=== PATIENT | male | born 1970 | race Caucasian/White ===

== ENCOUNTER 2020-02-28 06:22 | Outpatient (REF) | payer BC, SELFPAY ==
[2020-02-28 07:19] LABS: MANUAL DIFF FLAG NO
[2020-02-28 07:25] LABS: Basophils Percent Auto 0.5 % (0-2); Eosinophils Absolute Auto 0.1 X10*3/uL (0.0-0.4); Eosinophils Percent Auto 1.6 % (0-4); Hematocrit 44.5 % (42-52); Hemoglobin 14.6 g/dl (14.0-18.0); Imm Gran Abs Auto 0.01 X10*3/uL (0.00-0.03); Imm Gran Pct Auto 0.2 % (0.0-0.4); Lymphocytes Absolute Auto 1.9 X10*3/uL (1.2-4.9); Lymphocytes Percent Auto 33.6 % (20-40); Mean Corpuscular HGB Conc 32.8 g/dl (31.0-36.0); Mean Corpuscular Hemoglobin 30.2 pg (27.0-33.0); Mean Corpuscular Volume 92.1 fL (80-98); Mean Platelet Volume 9.5 fL (9.4-12.4); Monocytes Absolute Auto 0.6 X10*3/uL (0.1-1.2); Monocytes Percent Auto 10.2 % (2-11); Neutrophils Absolute Auto 3.1 X10*3/uL (2.0-8.3); Neutrophils Percent Auto 53.9 % (45-73); Platelet Count 332 X10*3/uL (160-400); Red Blood Count 4.83 X10*6/uL (4.60-5.80); Red Cell Distribution Width 12.1 % (11.0-16.0); White Blood Count 5.7 X10*3/uL (4.8-10.8)
[2020-02-28 07:47] LABS: Anion Gap 13 (12-20); Blood Urea Nitrogen 24 mg/dL (9-16); Calcium 8.7 mg/dL (8.4-10.2); Carbon Dioxide 30 mmol/L (22-29); Chloride 103 mmol/L (96-108); Cholesterol 202 mg/dL; Estimated Glomerular Filt Rate > 60; Glucose Fasting 84 mg/dL (60-99); HDL Cholesterol 58 mg/dL; LDL Cholesterol Calculated 133 mg/dl; Potassium 4.6 mmol/l (3.3-5.1); Sodium 141 mmol/L (135-145); Triglycerides 56 mg/dL
[2020-02-28 08:08] LABS: Prostate Specific Antigen Scr 0.52 ng/mL (<0.05-4.0)
== END 2020-02-28 06:23 | disposition home or self-care (01) ==
LOC: HO.LAB 06:22
PROVIDERS: PCP Nurse Practitioner Family; Visit Provider Nurse Practitioner Family
DX: Z00.00 Encounter for general adult medical examination without abnormal findings (principal)
CPT/HCPCS: 36415; 80048; 80061; 84153; 85025

== ENCOUNTER 2020-04-22 08:31 | Outpatient (REF) | payer BC, SELFPAY ==
[2020-04-22 08:51] LABS: COVID-19 Test Negative (Negative); IDNOW Serial# 55D5AD1C
== END 2020-04-22 08:32 | disposition home or self-care (01) ==
LOC: HO.LAB 08:31
PROVIDERS: Visit Provider Internal Medicine
DX: Z20.822 Contact with and (suspected) exposure to COVID-19 (principal)
CPT/HCPCS: 36415; 87635; C9803

== ENCOUNTER 2021-02-08 06:16 | Outpatient (REF) | payer BC, SELFPAY ==
[2021-02-08 08:06] LABS: Cholesterol 198 mg/dL; HDL Cholesterol 26 mg/dL; LDL Cholesterol Calculated 149 mg/dl; Triglycerides 116 mg/dL
[2021-02-08 08:27] LABS: Prostate Specific Antigen Scr 0.27 ng/mL (<0.05-4.0)
== END 2021-02-08 06:17 | disposition home or self-care (01) ==
LOC: HO.LAB 06:16
PROVIDERS: PCP Internal Medicine; Visit Provider Internal Medicine
DX: Z12.5 Encounter for screening for malignant neoplasm of prostate (principal); E11.9 Type 2 diabetes mellitus without complications; R35.1 Nocturia
CPT/HCPCS: 36415; 80061; 84153

== ENCOUNTER 2021-02-26 09:26 | Emergency (ER) | payer BC, SELFPAY ==
[2021-02-26 09:30] VITALS: BP 131/80; PULSE 66; RESP 17; TEMP 36.3; O2SAT 99; BMI 25.0
[2021-02-26] MEDS: Lidocaine HCl 2 % MPF 5 ML VIAL SUBCUT (09:42)
[2021-02-26] MEDS: Diphth,Pertus(ACell),Tet Adult 0.5 ML SYRINGE IM (10:10)
--- NOTE | 2021-02-26 10:11 | ED.WOUNDLAC ---
HPI - Wound/Laceration General Chief Complaint: Wound/Laceration Stated Complaint: Ear lac Time Seen by Provider: 02/26/21 09:39 Source: patient Mode of arrival: ambulatory Limitations: no limitations History of Present Illness HPI narrative: 50-year-old male presenting to the ED with a laceration to his right earlobe after a large fish hook caught on while he was trying to pack his stuff to move out of his house prior to arrival. He reports that he is not up-to-date on his tetanus. Denies any other injuries complaints or concerns at this time. 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) Location: other (Right ear) Place: home Patient tetanus UTD: No Context: accidental Associated symptoms: none Treatments prior to arrival: bandage Related Data Previous Rx's Medication Instructions Recorded sertraline 100 mg tablet (Zoloft) 100 mg PO DAILY #90 tab 01/15/21 atorvastatin 10 mg tablet (Lipitor) 10 mg PO DAILY 90 Days #90 tab 01/20/21 Allergies Allergy/AdvReac Type Severity Reaction Status Date / Time No Known Allergies Allergy Verified 09/09/20 14:35 Review of Systems Review of Systems: Constitutional : No Fever, No Chills, Cardiovascular : No Chest Pain, No SOB Respiratory : No Dyspnea Gastrointestinal : No abdominal pain Musculoskeletal : No Joint Swelling Skin : positive skin laceration, No Foreign bodies, No rash, No surrounding erythema Neuro : No Weakness, No Numbness/tingling Psych : No SI/HI/thoughts of self injury Yes all other systems are reviewed and are negative [facility] Past Medical History Attestation statement: The following information was validated with the patient. 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 Blood pressure normal Heart rate normal. Respiration rate normal. Temperature normal. Oxygen saturation normal. Appearance: Alert. Oriented X3. No acute distress. Head: Normal external exam. Normocephalic. Atraumatic. Eyes: PERRLA. EOMI. Conjunctiva and sclera normal. Eyelids normal. ENT: To the right ear lobe patient has a 2 cm flap irregular laceration. No foreign bodies or active bleeding noted. Pharynx normal. Uvula midline. Moist mucous membranes. Neck: Normal inspection. Neck supple. FROM. CVS: Normal heart rate and rhythm. Respiratory: No respiratory distress. Painless inspiration. Skin: Skin warm and dry. Normal skin color. Normal skin turgor. No rashes/lesions noted. Extremities: Extremities exhibit normal range of motion. Extremities nontender. Neuro: Oriented X 3. No motor deficit. No sensory deficit. Reflexes normal. Normal steady gait. No focal neuro deficits noted. Vascular: + radial pulses/+ 2 distal pedal pulses/+2 dorsalis pedis b/l. Normal cap refill. No cyanosis noted to upper extremity nails and lower extremity toes nails. Course Course Course Narrative: 50-year-old male presenting to the ED with a laceration to his right earlobe after a large fish hook caught on while he was trying to pack his stuff to move out of his house prior to arrival. He reports that he is not up-to-date on his tetanus. Denies any other injuries complaints or concerns at this time. Patient now status post laceration repair with [address] Patient tolerated procedure well. No complications. Tetanus updated at this time. Will DC home with instructions return in 5-7 days for suture removal and to return if any new or worsening symptoms and to follow up with primary care provider. Patient understands agrees with this plan. [facility] - Wound/Laceration Medical Records Attestation: I reviewed the patient's medical records. Procedures Laceration Laceration 1: Site: other ( Ear lobe) Side (If applicable): right Size (cm): 2 Description: flap and irregular Depth: involves muscle layer and [id number] Local Anesthetic: lidocaine 2% Amount of anesthesia used (mL): 3 Pre-repair: wound explored, irrigated extensively, deep structures intact and wound margins revised Skin layer closed with: nylon Size (cm): 6-0 Number of sutures: 7 Technique: simple, interrupted Discharge Plan Discharge Clinical Impression: Ear lobe laceration Patient Disposition: Home, Self-Care Instructions: Laceration (ED) Prescriptions: No Action sertraline [Zoloft] 100 mg tablet 100 mg PO DAILY Qty: 90 RF: 8 atorvastatin [Lipitor] 10 mg tablet 10 mg PO DAILY 90 Days Qty: 90 RF: 3 Referrals: Bernie Hannah PA [Emergency Midlevel Provider] - 1 week ( Return in 5-7 days for suture removal or sooner if any new or worsening symptoms.) Print Language: Uruguayan
== END 2021-02-26 10:25 | disposition home or self-care (01) ==
PROVIDERS: Emergency Provider Emergency Medicine; PCP Internal Medicine
DX: S01.311A Laceration without foreign body of right ear, initial encounter (principal); W26.8XXA Contact with other sharp object(s), not elsewhere classified, initial encounter; Y93.89 Activity, other specified; Y92.009 Unspecified place in unspecified non-institutional (private) residence as the place of occurrence of the external cause; Y99.9 Unspecified external cause status
CPT/HCPCS: 12051; 90471; 90715; 99283; 99284

== ENCOUNTER 2022-07-06 08:58 | Outpatient (REF) | payer BC, SELFPAY ==
[2022-07-06 09:20] LABS: MANUAL DIFF FLAG NO
[2022-07-06 09:30] LABS: Basophils Percent Auto 0.6 % (0-2); Eosinophils Absolute Auto 0.1 X10*3/uL (0.0-0.4); Eosinophils Percent Auto 0.8 % (0-4); Hemoglobin 14.6 g/dl (14.0-18.0); Imm Gran Abs Auto 0.03 X10*3/uL (0.00-0.03); Imm Gran Pct Auto 0.4 % (0.0-0.4); Lymphocytes Absolute Auto 1.7 X10*3/uL (1.2-4.9); Lymphocytes Percent Auto 23.5 % (20-40); Mean Corpuscular Hemoglobin 30.7 pg (27.0-33.0); Mean Corpuscular Volume 90.5 fL (80.0-98.0); Mean Platelet Volume 9.2 fL (9.4-12.4); Monocytes Absolute Auto 0.5 X10*3/uL (0.1-1.2); Monocytes Percent Auto 6.8 % (2-11); Neutrophils Absolute Auto 4.8 x10*3/uL (2.0-8.3); Neutrophils Percent Auto 67.9 % (45-73); Platelet Count 294 X10*3/uL (160-400); Red Blood Count 4.75 X10*6/uL (4.60-5.80); Red Cell Distribution Width 12.4 % (11.0-16.0); White Blood Count 7.1 X10*3/uL (4.8-10.8)
[2022-07-06 10:09] LABS: Alanine Aminotransferase 35 U/L (0-40); Albumin Level 4.3 g/dL (3.5-5.0); Alkaline Phosphatase 46 U/L (39-117); Anion Gap 12 (12-20); Aspartate Amino Transferase 36 U/L (5-37); Bilirubin Total 0.8 mg/dL (0.0-1.0); Blood Urea Nitrogen 19 mg/dL (9-16); Calcium 9.1 mg/dL (8.4-10.2); Carbon Dioxide 28 mmol/L (22-29); Chloride 104 mmol/L (96-108); Cholesterol 233 mg/dL; Estimated Glomerular Filt Rate > 60; Glucose Fasting 84 mg/dL (60-99); HDL Cholesterol 54 mg/dL; LDL Cholesterol Calculated 165 mg/dl; Potassium 4.3 mmol/L (3.3-5.1); Sodium 140 mmol/L (135-145); Total Protein 6.5 g/dL (6.5-8.0); Triglycerides 74 mg/dL
[2022-07-06 10:29] LABS: Prostate Specific Antigen Scr 0.45 ng/mL (<0.05-4.0)
[2022-07-12 14:44] LABS: Testosterone, Free 73.8 pg/mL (35.0-155.0); Testosterone, Total 572 ng/dL (250-1100)
== END 2022-07-06 08:59 | disposition home or self-care (01) ==
LOC: HO.LAB 08:58
PROVIDERS: PCP Internal Medicine; Visit Provider Internal Medicine
DX: Z00.00 Encounter for general adult medical examination without abnormal findings (principal); E03.9 Hypothyroidism, unspecified; R68.82 Decreased libido; E78.5 Hyperlipidemia, unspecified; N28.9 Disorder of kidney and ureter, unspecified; D64.9 Anemia, unspecified; Z12.5 Encounter for screening for malignant neoplasm of prostate
CPT/HCPCS: 36415; 80053; 80061; 84153; 84402; 84403; 84443; 85025

== ENCOUNTER 2023-01-30 10:40 | Outpatient (AMB) | payer BC, SELFPAY ==
--- NOTE | 2023-01-30 12:14 | MHC.OFFWIV ---
Intake Vital Signs 01/30/23 12:20 Height 5 ft 5 in Weight 135 lb 6 oz BMI 22.5 BP 100/68 Blood Pressure Location Rt brachial Position Sitting Pulse 62 Pulse Source Pulse Oximeter Temp 98.8 F Temp Source Oral Pulse Oximetry (%) 96 Oxygen Delivery Method Room Air Intake Visit Reasons: EST/left rib injury [phone] Intake Note: Pt is here today c/o Left side of med back pain due to son landed on his back x3days ago Patient Tobacco Use Status: Never used Tobacco Allergies No Known Allergies Allergy (Verified 01/30/23 12:50) Medication List - Last Reconciled 01/30/23 by Eduardo Epperson MD atorvastatin 10 mg PO DAILY sertraline 100 mg PO DAILY Do you need a note to return to daycare/school/sports/work: Yes HPI EST/left rib injury [phone] HPI Details 52-year-old male presents to the office for a sick visit. Patient reports that his child weighing 60 lb unexpectedly jumped on his back. He has sharp pain in the upper spine area. Taking deep breaths or sneezing triggers sharp pain. This event happened 2 days ago. No fevers or chills. Able to function and do activities of daily living. 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 No spinal or paraspinal tenderness. Breath sounds are well heard bilaterally. Chest palpation & inspection: normal inspection of the chest Results AMB Urinalysis, Automated UA Leukoctes 0 Patel/uL Last Edit by Shayna Bazzi CMA on 01/30/23 12:30 UA Nitrite Negative Last Edit by Shayna Bazzi, YOLANDA on 01/30/23 12:30 UA Urobilinogen 0.2 mg/dL Last Edit by Shayna Bazzi, YOLANDA on 01/30/23 12:30 UA Protein 0 mg/dL Last Edit by Shayna Bazzi, YOLANDA on 01/30/23 12:30 UA pH 7.0 Last Edit by Shayna Bazzi, YOLANDA on 01/30/23 12:30 UA Blood 0 Andrew/uL Last Edit by Shayna Bazzi, YOLANDA on 01/30/23 12:30 UA Specific [place] 1.015 Last Edit by Shayna Bazzi, YOLANDA on 01/30/23 12:30 UA Ketone Negative Last Edit by Shayna Bazzi, YOLANDA on 01/30/23 12:30 UA Bilirubin 0 mg/dL Last Edit by Shayna Bazzi, YOLANDA on 01/30/23 12:30 UA Glucose 0 mg/dL Last Edit by Shayna Bazzi CMA on 01/30/23 12:30 Results Reviewed Results Reviewed: Laboratory Last Values Urine pH (Auto) 7.0 01/30/23 12: Specific [place] (Auto) 1.015 01/30/23 12:26 Urine Protein (Auto) 0 mg/dL 01/30/23 12:26 Glucose (UA)(Auto) 0 mg/dL 01/30/23 12:26 Urine Ketones (Auto) Negative 01/30/23 12:26 Urine Blood (Auto) 0 Andrew/uL 01/30/23 12:26 Urine Nitrite (Auto) Negative 01/30/23 12:26 Urine Bilirubin (Auto) 0 mg/dL 01/30/23 12:26 Urine Urobilinogen (Auto) 0.2 mg/dL 01/30/23 12:26 Leukocyte Esterase (Auto) 0 Patel/uL 01/30/23 12:26 Assessment & Plan Assessment & Plan (1) Contusion, chest wall: Code(s): S20.219A - Contusion of unspecified front wall of thorax, initial encounter Plan: X-ray images personally viewed by me. Meloxicam and cyclobenzaprine called in. Orders: Orders AMB Urinalysis Automated Today Z13.9 - Encounter for screening, unspecified XR ribs LT min 3V w CXR1V Today S20.219A - Contusion of unspecified front wall of thorax, initial encounter Coding Level of Care Code Est Pt Level 4 (48808) Diagnoses Contusion, chest wall S20.219A
[2023-01-30 12:20] VITALS: BP 100/68; PULSE 62; TEMP 37.1; O2SAT 96; BMI 22.5
== END 2023-01-30 13:33 | disposition home or self-care (01) ==
PROVIDERS: PCP Internal Medicine; Visit Provider Internal Medicine
DX: S20.219A Contusion of unspecified front wall of thorax, initial encounter (principal); Z13.9 Encounter for screening, unspecified
CPT/HCPCS: 81003; 99214

== ENCOUNTER 2023-01-30 12:47 | Outpatient (REF) | payer BC, SELFPAY ==
--- NOTE | ~2023-01-30 | XR_ITS ---
EXAMINATION: XR RIBS, LEFT CLINICAL INFORMATION: Contusion of front chest wall with question of fracture COMPARISON: None available. TECHNIQUE: Single view chest with 3 additional views left RIBS FINDINGS: Lungs are clear. No consolidation, pneumothorax, or pleural effusion. The cardiomediastinal silhouette and pulmonary vasculature are normal. Osseous structures are unremarkable. Ribs are intact. No fractures are identified. XR/XR ribs LT min 3V w CXR1V IMPRESSION: Unremarkable examination.
== END 2023-01-30 12:48 | disposition home or self-care (01) ==
LOC: HO.HMGCX 12:47
PROVIDERS: Visit Provider Internal Medicine
DX: S20.212A Contusion of left front wall of thorax, initial encounter (principal)
CPT/HCPCS: 71101

== ENCOUNTER 2023-04-11 09:16 | Outpatient (AMB) | payer BC, SELFPAY ==
[2023-04-11 09:27] VITALS: BP 108/60; PULSE 103; O2SAT 98; BMI 22.3
--- NOTE | 2023-04-11 09:27 | MHC.PC.OV ---
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: Not Required per policy Accompanied by: Self / Same As Patient Allergies No Known Allergies Allergy (Verified 04/11/23 09:28) Medication List - Last Reconciled 04/11/23 by Dionte Graham MD atorvastatin 10 mg PO DAILY sertraline 100 mg PO DAILY Tobacco use date assessed: 04/11/23 Dental Screening Dental Screen Date: 04/11/23 Did you have a dental visit in the last 12 months?: Yes Did you have a dental problem in the last 6 months where you did not have access to dental care?: No Was dental information given to patient?: Patient has dentist HPI Left Elbow Pain/work note HPI Details injured left ulnar nerve at the elbow yesterday; pain and numbness; improving today but desires oow note for a day [facility] Medical History (Updated 04/11/23 @ 10:11 by Dionte Graham MD) Nocturia High cholesterol Surgical History History of foot surgery History of hernia surgery Social History Housing: House Alcohol intake: current Alcohol intake frequency: holidays/special occasions only Patient Tobacco Use Status: Never used Tobacco e-Cigarette/Vaping Use: Never Used Second Hand Smoke Exposure: Yes service: No Current occupational status: employed 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 1. Little interest or pleasure in doing things: not at all 2. Feeling down, depressed, or hopeless: not at all 3. Trouble falling or staying asleep, or sleeping too much: not at all 4. Feeling tired or having little energy: not at all 5. Poor appetite or overeating: not at all 6. Feeling bad about yourself - or that you are a failure or have let yourself or your family down: not at all 7. Trouble concentrating on things, such as reading the newspaper or watching television: not at all 8. Moving or speaking so slowly that other people could have noticed. Or the opposite - being so fidgety or restless that you have been moving around a lot more than usual: not at all 9. Thoughts that you would be better off or of hurting yourself in some way: not at all Total score: 0 Depression Screening Interpretation: Negative Depression Screening Done: Yes 18447 - PHQ-9 Billing: Yes Source: Developed by Drs. Yoni Mcmillan, Niurka Stark, Daryl Lynn and colleagues, with an educational onesimo from [employer] ([email or web address]). Thrive Questionnaire Date Thrive assessed: 04/11/23 I am a: Patient What is your living situation today?: I have a steady place to live Within the past 12 months, did the food you bought not last and you didn't have the money to get more?: Never true Within the past 12 months, did you worry whether your food would run out before you got money to buy more?: Never true Do you have trouble paying for medicines?: No Do you have trouble getting transportation to medical appointments?: No Do you have trouble paying your heating and electricity bill?: No Do you have trouble taking care of your child, family member or friend?: No Do you have trouble with day-to-day activities such as bathing, preparing meals, shopping, managing finances, etc.?: No Are you currently unemployed and looking for a job?: No Are you interested in more education?: No Please select the resources that you would like help with: None ANIVAL-7 AMB Questionnaire ANIVAL-7 Date ANIVAL - 7 assessed: 04/11/23 Feeling nervous, anxious, or on edge: 0 = Not at all Not being able to stop or control worryin = Not at all Worrying too much about different things: 0 = Not at all Trouble relaxin = Not at all Being so restless that it is hard to sit still: 0 = Not at all Becoming easily annoyed or irritable: 0 = Not at all Feeling afraid as if something awful might happen: 0 = Not at all Total ANIVAL-7 score (0-4 normal; 5-9 mild; 10-14 moderate; 15-21 severe): 0 Source: Developed by Drs. Yoni Mcmillan, Niurka Stark, Daryl Lynn and colleagues, with an educational onesimo from [employer] ([email or web address]). Review of Systems Const Denies chills, Denies headache(s) and Denies weight loss ENT Denies headache(s) Card Denies chest pain, Denies syncope, Denies irregular heart rhythm and Denies dyspnea Resp Denies chest congestion, Denies cough and Denies dyspnea GI Denies abdominal pain, Denies change in stool character, Denies nausea and Denies vomiting Musc Denies deformity and Denies joint swelling Neuro Denies syncope and Denies headache(s) Physical exam (Primary Care) Vital Signs: Last Vital Signs Pulse 103 H 04/11/23 09:27 BP 108/60 04/11/23 09:27 Pulse Ox 98 04/11/23 09:27 Oxygen Delivery Method Room Air 04/11/23 09:27 BMI result Body Mass Index 22.3 Tobacco/Smoking Status: Tobacco use Status Tobacco use date assessed 04/11/23 04/11/23 09:32 Patient Tobacco Use Status Never used Tobacco 04/11/23 09:32 e-Cigarette/Vaping Use Never Used 04/11/23 09:32 PHQ-9: PHQ-9 Score PHQ-9: Total score 0 04/11/23 09:33 Depression Screening Interpretation: Negative Thrive Assessment: Date of Thrive Assessment Date Thrive assessed 04/11/23 04/11/23 09:32 Const General: cooperative, comfortable, no acute distress and alert Neck Neck: Yes no lymphadenopathy Thyroid: Thyroid normal Resp Effort & Inspection: normal respiratory effort Auscultation: clear to auscultation bilaterally Percussion: percussion normal Cardio Jugular venous distension: no JVD Palpation: normal PMI Rate: regular rate Rhythm: regular rhythm Heart sounds: S1 normal heart sound present and S2 normal heart sound present GI Inspection: Yes normal to inspection Palpation (GI): No hepatosplenomegaly present Skin General skin exam: no rashes or lesions noted Extrem General: Yes no clubbing, cyanosis or edema Assessment and Plan Assessment & Plan (1) Ulnar nerve compression: Code(s): G56.20 - Lesion of ulnar nerve, unspecified upper limb Plan: ice and nsaids Coding Level of Care Code Est Pt Level 3 (53885) Diagnoses Ulnar nerve compression G56.20
== END 2023-04-11 10:00 | disposition home or self-care (01) ==
PROVIDERS: PCP Internal Medicine; Visit Provider Internal Medicine
DX: G56.20 Lesion of ulnar nerve, unspecified upper limb (principal)
CPT/HCPCS: 99213

== ENCOUNTER 2024-06-17 09:09 | Outpatient (REF) | payer BC, SELFPAY ==
[2024-06-17 14:50] LABS: Influenza A PCR NEGATIVE (Negative); Influenza B PCR NEGATIVE (Negative); Resp Syncy Virus RNA Qual PCR NEGATIVE (Negative); SARS COV2 PCR INHOUSE NEGATIVE (Negative)
== END 2024-06-17 09:10 | disposition home or self-care (01) ==
LOC: HO.LAB 09:09
PROVIDERS: Nurse Practitioner Family; PCP Internal Medicine
DX: J06.9 Acute upper respiratory infection, unspecified (principal)
CPT/HCPCS: 0241U; 87880

== ENCOUNTER 2024-06-17 09:09 | Outpatient (AMB) | payer BC, SELFPAY ==
--- NOTE | 2024-06-17 09:47 | AM.OFFWIN_ITS ---
Intake Vital Signs 06/17/24 09:48 Weight 138 lb 6 oz BP 124/80 Blood Pressure Location Lt brachial Position Sitting Pulse 71 Pulse Source Pulse Oximeter Temp 99.3 F Temp Source Oral Pulse Oximetry (%) 98 Oxygen Delivery Method Room Air Intake Visit Reasons: EP ?Strep Intake Note: Patient here for sore throat, body aches, productive cough. he states his son has croop and other child has a upper resp infection. Patient Tobacco Use Status: Never used Tobacco Allergies No Known Allergies Allergy (Verified 06/17/24 09:49) Do you need a note to return to daycare/school/sports/work: Yes HPI HPI Comments History of Present Illness Details 53 y/o male patient who presents to the walk in clinic with c/o URI symptoms since Yesterday. C/o Sore-throat, subjective fevers, chills, and body aches. He has been taking OTC remedies with some relief. 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 Cognitive needs: No Hearing needs: No Vision needs: Yes (Reading Glasses) Review of Systems Const All systems reviewed & are unremarkable except as noted in HPI and below Physical Exam Vital Signs: Last Vital Signs Temp 99.3 F 06/17/24 09:48 Pulse 71 06/17/24 09:48 BP 124/80 06/17/24 09:48 Pulse Ox 98 06/17/24 09:48 Oxygen Delivery Method Room Air 06/17/24 09:48 Const General: cooperative and no acute distress Nutritional Appearance: well nourished Orientation/consciousness: patient oriented x3 HEENT Head: Yes normocephalic Ears: external ears normal and TM abnormal with fluid behind the TM bilateral General nose exam: Nasal discharge present Face and sinus: Yes sinuses nontender Mouth: moist mucous membranes Throat: Yes uvula midline Resp Effort & Inspection: normal respiratory effort and able to speak in complete sentences Auscultation: clear to auscultation bilaterally, no crackles, no rales, no rhonchi and no wheezes Cardio Heart sounds: S1 normal heart sound present and S2 normal heart sound present Neuro General: patient oriented x3 Assessment & Plan Assessment & Plan (1) Acute respiratory disease: Code(s): J06.9 - Acute upper respiratory infection, unspecified Plan: Ordered SARs Acetaminophen for pain relief. OTC cold/flu remedies. Orders: Orders SARS-CoV2/FLU/RSV Today J06.9 - Acute upper respiratory infection, unspecified Medications: New benzonatate 200 mg (2 x 100 mg) PO BID 60 caps 0RF J06.9 - Acute upper respiratory infection, unspecified dextromethorphan polistirex ER (Delsym 12 hour) 10 mL PO Q12H 89 mL 0RF cough J06.9 - Acute upper respiratory infection, unspecified Coding Level of Care Code Est Pt Level 4 (82097) Diagnoses Acute respiratory disease J06.9 Time Spent (min) 20
[2024-06-17 09:48] VITALS: BP 124/80; PULSE 71; TEMP 37.4; O2SAT 98
== END 2024-06-17 10:06 | disposition home or self-care (01) ==
PROVIDERS: PCP Internal Medicine; Visit Provider Nurse Practitioner Family
DX: J06.9 Acute upper respiratory infection, unspecified (principal); Z13.9 Encounter for screening, unspecified

== ENCOUNTER 2024-06-25 12:41 | Outpatient (AMB) | payer BC, SELFPAY ==
--- NOTE | 2024-06-25 13:15 | MHC.OFFWIV ---
Intake Vital Signs 06/25/24 13:16 Weight 138 lb BP 118/80 Blood Pressure Location Rt brachial Position Sitting Pulse 81 Pulse Source Pulse Oximeter Pulse Oximetry (%) 98 Oxygen Delivery Method Room Air Intake Visit Reasons: EP f/u flu symptoms and ? sinus infection Intake Note: Patient here for cough and constant sinus pressure that has been present for 10 days. Patient Tobacco Use Status: Never used Tobacco Allergies No Known Allergies Allergy (Verified 06/25/24 13:16) Do you need a note to return to daycare/school/sports/work: No HPI HPI Comments History of Present Illness Details This is a 53-year-old male with no stated past medical history presenting for evaluation of flu-like symptoms and he has had for the past 10-11 days. Patient was seen in the walk-in 8 days ago and tested negative for strep pharyngitis, influenza, COVID-19 and RSV. Patient states that his sinus congestion, blocked ears and thick sputum persist at this time. Patient states his last fever was on Monday afternoon. He denies having any current fevers, headaches, pharyngitis, chest pain or overt shortness of breath. Patient states that his son was recently diagnosed with croup. 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 Cognitive needs: No Hearing needs: No Vision needs: Yes (Reading Glasses) Review of Systems Const All systems reviewed & are unremarkable except as noted in HPI and below Denies chills, Reports fatigue, Denies fever(s) and Denies headache(s) Eyes Reports as per HPI ENT Reports as per HPI, Denies otalgia, Denies headache(s), Reports nasal congestion, Reports sinus pressure and Denies sore throat Card Reports no additional complaints, Denies chest pain, Denies dyspnea and Denies dyspnea on exertion Resp Reports chest congestion, Reports cough, Denies dyspnea, Denies dyspnea on exertion, Denies stridor and Denies wheezing GI Reports no additional complaints Reports no additional complaints Musc Reports no additional complaints Skin/Breast Reports system reviewed and no additional complaints, except as documented Neuro Reports no additional complaints and Denies headache(s) Psych Reports no additional complaints Endo Reports no additional complaints and Reports fatigue Eleuterio/Lymph Reports no additional complaints Aller/Immun Reports no additional complaints and Denies wheezing Physical Exam Vital Signs: Last Vital Signs Pulse 81 06/25/24 13:16 BP 118/80 06/25/24 13:16 Pulse Ox 98 06/25/24 13:16 Oxygen Delivery Method Room Air 06/25/24 13:16 Const General: cooperative, healthy appearing, comfortable, no acute distress, well developed, alert, awake and Physically active Nutritional Appearance: well nourished Orientation/consciousness: patient oriented x3 Limitations: no limitations HEENT Head: Yes normal to inspection and Yes normocephalic Ears: hearing grossly normal bilaterally, external ears normal, right TM abnormal (Erythematous, bulging, no fluid level noted), TM normal on the left and EAC's normal General nose exam: Normal external nose present Face and sinus: Yes normal facial exam and Yes sinuses nontender Mouth: Normal oral and palatal mucosa present Throat: Yes posterior oropharynx normal and No postnasal drainage Eyes General: appearance normal, both eyes and all related structures Resp Effort & Inspection: normal respiratory effort, able to speak in complete sentences, no audible wheezes, no cough, respiratory effort not decreased and no nasal flaring Auscultation: clear to auscultation bilaterally Cardio Rate: regular rate Rhythm: regular rhythm Neuro General: patient oriented x3 Psych Appearance: grossly normal Mental Status: mental status grossly normal Insight: Good insight present (Psych) Judgement: Good judgement present (Psych) Assessment & Plan Assessment & Plan (1) Otitis media of right ear: Comment: There is no evidence of an acute bacterial sinusitis or pneumonia. Patient will be discharged home with amoxicillin. Code(s): H66.91 - Otitis media, unspecified, right ear Qualifiers: Otitis media type: unspecified Qualified Code(s): H66.91 - Otitis media, unspecified, right ear Plan: Amoxicillin 500 mg t.i.d. x7 days. Tylenol or ibuprofen as needed for discomfort. Medications: New amoxicillin 500 mg PO TID 21 caps 0RF Coding Level of Care Code Est Pt Level 3 (57993) Diagnoses Right otitis media, unspecified otitis media type H66.91 Otitis media type: unspecified Time Spent (min) 20
[2024-06-25 13:16] VITALS: BP 118/80; PULSE 81; O2SAT 98
--- OUTSIDE RECORDS SUMMARY | 2024-06-25 14:48 | XMS_ITS | Clinical Summary ---
Author Organization [facility] Address [address] [place] [address] Care Team Providers Care Affiliate Marketing Manager Name Role Phone Unavailable Primary Care Provider Unavailabl e Social History Tobacco Use Types Packs/Day Years Used Date Smoking Tobacco: Never Assessed Sex and Gender Information Value Date Recorded Sex Assigned at Not on file Gender Identity Not on file Sexual Orientation Not on file Plan of Treatment Health Maintenance Due Date Last Done Comments Hepatitis C Virus Screening 1968 HIV Screening 1981 DTaP/Tdap/Td Vaccines (1 - Tdap) 10/09/1987 Hepatitis B Vaccines (1 of 3 - 19+ 3-dose series) 10/09/1987 Colonoscopy 2013 Pneumococcal Vaccines 50+ (1 of 1 - PCV) 2018 Zoster (Shingles) Vaccine (1 of 2) 2018 Influenza Vaccine 10/26/2023 03/19/2020 COVID-19 Vaccine ( - 2023-2 5 season) 2023 Pneumococcal Vaccine: Pediat sujey (0-5 Years) and At-Risk Patients (6 to 49 Years) Aged Out No longer eligible b ased on patient's age to complete this topic
--- OUTSIDE RECORDS SUMMARY | 2024-06-25 14:48 | XMS_ITS | Encounter Summary ---
Author Organization [facility] Address [address] [place] [address] Care Team Providers Care Document Imaging Manager Name Role Phone Unavailable Primary Care Provider Unavailabl e Encounter Details Date Type Department Care Team (Latest Contact Info) Description 03/19/2020 Lab Requisition [facility] COVID Drive Through [address] [place] [address] [address] [place] [address] Sylvester Snyder PA-C [address] [place] [id number] Encounter for laboratory testing for COVID-19 virus Social History Tobacco Use Types Packs/Day Years Used Date Smoking Tobacco: Never Assessed Sex and Gender Information Value Date Recorded Sex Assigned at Not on file Gender Identity Not on file Sexual Orientation Not on file COVID-19 Exposure Response Date Recorded In the last month, have you been in contact with someone who was confirmed or suspected to have Coronavirus / COVID-19? Unable to assess 03/19/2020 11:11 AM ES T documented as of this encounter Plan of Treatment Not on file documented as of this encounter Procedures Procedure Name Priority Date/Time Associated Diagnosis Comments COVID-19 (SARS-COV-2) - SEMA4 LAB Routine 03/19/2020 11:12 AM EST Encounter for laboratory testing for COVID-19 virus [ICD-10-CM] documented in this encounter Results * COVID-19 (SARS-COV-2) (SEMA4) (03/19/2020 11:12 AM EST) COVID-19 RT-PCR NOT-DETECT ED Not-Detec marley 03/22/2020 11:12 PM EST [facility] - [facility] Comment:Interpretation: The viral RNA was not detected, making the COVID-19 diagnosis less likely. Clinical correlation is highly recommended.Final report signed by Kenji Gonsalves, Ph.D., [facility], Laboratory DirectorTests performed at [facility] [employer] [facility] Microbiology Nasopharyngeal swab / Unknown 03/19/2020 11:12 AM EST 03/19/2020 11:12 AM EST Narrative JAVY MCCLOUDLUAN - 03/22/2020 11:12 PM EST Performed by [facility]., [address] [place] [address], CLIA# [id number] and [place] License# [id number] Sylvester Snyder PA-C MICROBIOLOGY - NERAL ORDERABLES JAVY REDDY documented in this encounter Visit Diagnoses Diagnosis Encounter for laboratory testing for COVID-19 virus documented in this encounter
== END 2024-06-25 13:59 | disposition home or self-care (01) ==
PROVIDERS: PCP Internal Medicine; Visit Provider Physician Assistant
DX: H66.91 Otitis media, unspecified, right ear (principal)

== ENCOUNTER 2024-12-09 15:55 | Outpatient (AMB) | payer BC, SELFPAY ==
[2024-12-09 16:02] VITALS: BP 108/70; PULSE 68; RESP 18; TEMP 36.2; O2SAT 95; BMI 23.0
--- NOTE | 2024-12-09 16:02 | A.OFFPC_ITS ---
Vital Signs 12/09/24 16:02 Height 5 ft 5 in Weight 138 lb BMI 23.0 BP 108/70 Blood Pressure Location Lt brachial Position Sitting Respiration 18 Pulse 68 Pulse Source Pulse Oximeter Temp 97.1 F Temp Source Temporal Artery Scan Pulse Oximetry (%) 95 Oxygen Delivery Method Room Air Intake Visit Reasons: JADYN Dr Graham Landfill Grader Required: No Accompanied by: Self / Same As Patient Allergies No Known Allergies Allergy (Verified 12/09/24 16:36) Medication List - Last Reconciled 12/09/24 by TREVA Verdugo No Known Home Meds Tobacco use date assessed: 12/09/24 Dental Screening Dental Screen Date: 12/09/24 Did you have a dental visit in the last 12 months?: Yes Did you have a dental problem in the last 6 months where you did not have access to dental care?: No Was dental information given to patient?: Patient has dentist HPI JADYN Dr Graham HPI Details The patient is a 54-year-old male presenting with a wellness check and management of chronic shoulder issues. In addition, he is transitioning care from Dr. Graham, who retired roughly about six months ago. The patient reports bilateral torn labrums and rotator cuff tears in both shoulders, which have been present for approximately 15 years. 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 Recently, he has started using BPC 157, a gastric peptide, which he reports has significantly improved his shoulder function, allowing him to perform overhead presses with over 40 pounds. The patient has a history of elevated LDL cholesterol, for which he was previously on statins. He discontinued the statins due to adverse effects and has since managed his cholesterol through dietary changes and other non- pharmacological interventions. 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 His hearing is currently impaired but stable. 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 1. Little interest or pleasure in doing things: not at all 2. Feeling down, depressed, or hopeless: not at all 3. Trouble falling or staying asleep, or sleeping too much: not at all 4. Feeling tired or having little energy: not at all 5. Poor appetite or overeating: not at all 6. Feeling bad about yourself - or that you are a failure or have let yourself or your family down: not at all 7. Trouble concentrating on things, such as reading the newspaper or watching television: not at all 8. Moving or speaking so slowly that other people could have noticed. Or the opposite - being so fidgety or restless that you have been moving around a lot more than usual: not at all 9. Thoughts that you would be better off or of hurting yourself in some way: not at all Total score: 0 Depression Screening Interpretation: Negative Depression Screening Done: Yes 28197 - PHQ-9 Billing: Yes Source: Developed by Drs. Yoni Mcmillan, Niurka Stark, Daryl Lynn and colleagues, with an educational onesimo from [employer]. Thrive Questionnaire Date Thrive assessed: 04/11/23 I am a: Patient What is your living situation today?: I have a steady place to live Within the past 12 months, did the food you bought not last and you didn't have the money to get more?: Often true Within the past 12 months, did you worry whether your food would run out before you got money to buy more?: Never true Do you have trouble paying for medicines?: No Do you have trouble getting transportation to medical appointments?: No Do you have trouble paying your heating and electricity bill?: No Do you have trouble taking care of your child, family member or friend?: No Do you have trouble with day-to-day activities such as bathing, preparing meals, shopping, managing finances, etc.?: No Are you currently unemployed and looking for a job?: No Are you interested in more education?: No Please select the resources that you would like help with: None Currently or been in a relationship where the following occur: No concerns reported THRIVE Score: 1 AUDIT C Alcohol Use Questionnaire (AUDIT-C) 1. How often do you have a drink containing alcohol?: 2-4 times a month 2. How many drinks containing alcohol do you have on a typical day when you are drinking?: 1 or 2 3. How often do you have six or more drinks on one occasion?: Never Total Score: 2 ANIVAL-7 AMB Questionnaire ANIVAL-7 Date ANIVAL - 7 assessed: 04/11/23 Feeling nervous, anxious, or on edge: 0 = Not at all Not being able to stop or control worryin = Not at all Worrying too much about different things: 0 = Not at all Trouble relaxin = Not at all Being so restless that it is hard to sit still: 0 = Not at all Becoming easily annoyed or irritable: 0 = Not at all Feeling afraid as if something awful might happen: 0 = Not at all Total ANIVAL-7 score (0-4 normal; 5-9 mild; 10-14 moderate; 15-21 severe): 0 Source: Developed by Drs. Yoni Mcmillan, Niurka Stark, Daryl Lynn and colleagues, with an educational onesimo from [employer]. ANIVAL-7 Assessment Billing ANIVAL-7 Assessment Tool: ANIVAL-7 Assessment 75134 Review of Systems Const Denies headache(s) Eyes Denies loss of vision ENT Denies vertigo, Denies dizziness, Denies headache(s) and Denies sore throat Card Denies chest pain, Denies leg edema and Denies lightheadedness Resp Denies cough, Denies hemoptysis and Denies wheezing GI Denies abdominal pain, Denies melena, Denies constipation, Denies diarrhea and Denies vomiting Denies dysuria, Denies urinary frequency and Denies urinary urgency Musc Reports arthralgias (Bilateral shoulder ), Denies joint swelling, Denies numbness and Denies tingling Neuro Denies Abnormal speech present, Denies behavioral changes, Denies vertigo, Denies dizziness, Denies headache(s), Denies loss of vision, Denies memory loss, Denies numbness and Denies tingling Psych Denies anxiety, Denies behavioral changes, Denies depression, Denies memory loss and Denies panic attacks Eleuterio/Lymph Denies easy bleeding and Denies easy bruising Aller/Immun Denies wheezing Physical exam (Primary Care) Vital Signs: Last Vital Signs Temp 97.1 F 12/09/24 16:02 Pulse 68 12/09/24 16:02 Resp 18 12/09/24 16:02 BP 108/70 12/09/24 16:02 Pulse Ox 95 12/09/24 16:02 Oxygen Delivery Method Room Air 12/09/24 16:02 BMI result Body Mass Index 23.0 Tobacco/Smoking Status: Tobacco use Status Tobacco use date assessed 12/09/24 12/09/24 16:08 Patient Tobacco Use Status Never used Tobacco 12/09/24 16:08 e-Cigarette/Vaping Use Never Used 12/09/24 16:08 PHQ-9: PHQ-9 Score PHQ-9: Total score 0 12/10/24 21:45 Depression Screening Interpretation: Negative Thrive Assessment: Date of Thrive Assessment Date Thrive assessed 04/11/23 12/09/24 16:08 Currently or been in a relationship where the following occur: No concerns reported Const General: healthy appearing, no acute distress, alert and awake Nutritional Appearance: well nourished Orientation/consciousness: oriented to person, oriented to place and oriented to time HENMT Ears: TM's normal bilaterally General nose exam: Normal nasal mucous membranes and turbinates present Eyes Conjunctivae: conjunctivae normal Sclerae: sclerae normal Pupils: Equal, round and reactive pupils present Neck Neck: Yes no lymphadenopathy and Yes no JVD Thyroid: Thyroid normal Carotids: no bruits Resp Effort & Inspection: normal respiratory effort and not tachypneic Auscultation: no crackles, no rales, no rhonchi and no wheezes Cardio Rate: regular rate Rhythm: regular rhythm Heart sounds: no murmurs and normal S1 and S2 GI Palpation (GI): Soft to palpation, nontender, no hepatomegaly and no splenomegaly Auscultation: normal bowel sounds Skin General skin exam: no rashes or lesions noted and dry skin Neuro General: oriented to person, oriented to place and oriented to time Cranial nerves: Yes Equal, round and reactive pupils present Speech: No Abnormal speech present Gait exam (Neuro): Normal gait present Motor exam (neuro): no tremor noted Extrem Right upper extremity: full ROM and shoulder/upper arm Details: no tenderness and no swelling Left upper extremity: full ROM and shoulder/upper arm Details: no tenderness and no swelling Right lower extremity: full ROM; no edema Left lower extremity: full ROM; no edema Psych Mental Status: mental status grossly normal Speech and movement: Normal speech and movement present Affect: normal affect Attitude: cooperative Thought process: Normal thought process present Coding Level of Care Code Est Pt Prev Care 40-64y(47803) Diagnoses Annual physical exam Z00.00 Bilateral shoulder pain, unspecified chronicity M25.511; M25.512 Chronicity: unspecified Decreased hearing of both ears H91.93 Laterality: bilateral High cholesterol E78.00 Right rotator cuff tendinitis M75.81 Additional Codes ANIVAL-7 Assessment Billing - ANIVAL-7 Assessment Tool: ANIVAL-7 Assessment 13332 ([id number]) PHQ-9 - 24588 - PHQ-9 Billing: Yes ([id number]) Time Spent (min) 41 Assessment & Plan Assessment & Plan (1) Annual physical exam: Code(s): Z00.00 - Encounter for general adult medical examination without abnormal findings Category: Medical Plan: - Colonoscopy: Last performed at age 48, with no polyps found, next due in 10 years if no changes occur - Tetanus vaccination: Consideration for update due to potential exposure risk - Eye examination: Appointment pending The patient reports that he has been getting all his labs done through a company in [place] instead of the minimal amount that his allowed through his insurance. He will get a copy of the results after because he is schedule to get these done soon. (2) Bilateral shoulder pain: Code(s): M25.511 - Pain in right shoulder; M25.512 - Pain in left shoulder Category: Medical Qualifiers: Chronicity: unspecified Qualified Code(s): M25.511 - Pain in right s houlder; M25.512 - Pain in left shoulder Plan: The patient reports bilateral torn labrums, which have been present for approximately 15 years. He manages the condition through physical therapy and has recently started using BPC 157, which has improved his shoulder function. 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 His hearing is currently impaired but stable. (4) High cholesterol: Code(s): E78.00 - Pure hypercholesterolemia, unspecified Category: Medical Plan: The patient has a history of elevated LDL cholesterol, previously managed with statins, which were discontinued due to adverse effects. He now manages his cholesterol through dietary changes and other non-pharmacological interventions. The patient reports that he has been getting all his labs done through a company in [place] instead of the minimal amount that his allowed through his insurance. He will get us a copy of the results after because he is schedule to get these done soon. (5) Right rotator cuff tendinitis: Code(s): M75.81 - Other shoulder lesions, right shoulder Category: Medical Plan: The patient reports bilateral torn labrums, which have been present for approximately 15 years. He manages the condition through physical therapy and has recently started using BPC 157, which has improved his shoulder function.
--- OUTSIDE RECORDS SUMMARY | 2024-12-09 21:10 | XMS_ITS | Encounter Summary ---
Author Organization [facility] Address [address] [place] [address] Care Team Providers Care Rn Production Name Role Phone Unavailable Primary Care Provider Unavailabl e Encounter Details Date Type Department Care Team (Latest Contact Info) Description 03/19/2020 Lab Requisition [facility] COVID Drive Through [address] [place] [address] [address] [place] [address] Sylvester Snyder PA-C [address] [place] [address] Encounter for laboratory testing for COVID-19 virus Social History Tobacco Use Types Packs/Day Years Used Date Smoking Tobacco: Never Assessed Sex and Gender Information Value Date Recorded Sex Assigned at Not on file Legal Sex Male 8:07 AM EST Gender Identity Not on file Sexual Orientation [...] 03/22/2020 11:12 PM EST [facility] Comment:Interpretation: The viral RNA was not detected, making the COVID-19 diagnosis less likely. Clinical correlation is highly recommended.Final report signed by Kenji Gonsalves, Ph.D., [facility], Laboratory DirectorTests performed at [email or web address] Microbiology Nasopharyngeal swab / Unknown 03/19/2020 11:12 AM EST 03/19/2020 11:12 AM EST Narrative JAVY REDDY - 03/22/2020 11:12 PM EST Performed by [email or web address] [address] [place] [address], CLIA# [id number] and [place] License# [id number] us Sylvester Snyder PA-C MICROBIOLOGY - GENERAL OR DERABLES Final Result JAVY REDDY documented in this encounter Visit Diagnoses Diagnosis Encounter for laboratory testing for COVID-19 virus documented in this encounter
--- OUTSIDE RECORDS SUMMARY | 2024-12-09 21:10 | XMS_ITS | Encounter Summary ---
Author Organization [facility] Address [address] [place] [address] Phone Care Team Providers Care Community Development Technician Name Role Phone Kevin Anderson DO Primary Care Provider [phone]- [phone] Jennifer Swift MD, MPH Unavailable +1- [phone] Encounter Details Date Type Department Care Team (Late st Contact Info) Description 05/30/2017 Procedure Pass [address] [place] [address] Social History Tobacco Use Types Packs/Day Years Used Date Smoking Tobacco: Never Smokeless Tobacco: Never Alcohol Use Standard Drinks/Week Comments No 0 (1 standard drink = 0.6 oz pur e alcohol) Sex and Gender Information Value Date Recorded Sex Assigned at Not on file Legal Sex Male 12:03 PM EST Gender Identity Not on file Sexual Orientation Not on file documented as of this encounter Last Filed Vital Signs Vital Sign Reading Time Taken Comments Blood Pressure - - Pulse - - Temperature - - Respiratory Rate - - Oxygen Saturation - - Inhaled Oxygen Concentration - - Weight 63.5 kg (140 lb) 05/31/2017 5:15 PM EST Height 165.1 cm (5' 5 ) 05/31/2017 5:15 PM EST Body Mass Index 23.3 05/31/2017 5:15 PM EST documented in this encounter Plan of Treatment Not on file documented as of this encounter Visit Diagnoses Not on filedocumented in this encounter Care Teams Community Development Technician Relationship Specialty Start Date End Date Kevin Anderson DO [address] [place] [id number] PCP - General Internal Medicine 05/03/17 Jennifer Swift MD, MPH [address] [place] [address] [email or web address] Insurance Assigned Provider 05/31/19 05/02/20 documented as of this encounter Additional Source Comments The information contained in this document represents components of the legal health record. It is not the complete legal health record.[facility]
--- OUTSIDE RECORDS SUMMARY | 2024-12-09 21:10 | XMS_ITS | Clinical Summary ---
Author Organization [facility] Address [address] [place] [address] Care Team Providers Care Lathe Turner Name Role Phone Unavailable Primary Care Provider [...] (1 of 3 - 19+ 3-dose series) 09/24 Colonoscopy 2013 Pneumococcal Vaccines 50+ (1 of 1 - PCV) 2018 Zoster (Shingles) Vaccine (1 of 2) 2018 Influenza Vaccine 10/25/2024 03/19/2020 COVID-19 Vaccine (1 - 2023- season) 2024 Insurance [facility]
--- OUTSIDE RECORDS SUMMARY | 2024-12-09 21:10 | XMS_ITS | Clinical Summary ---
Author Organization [facility] Address [address] [address] Phone Care Team Providers Care Training Coordinator Name Role Phone Kevin Anderson Sylvester Primary Care Provider [phone]- [phone] Allergies No known active allergies Medications atorvastatin (LIPITOR) 10 MG tablet 04/16/2017 Active sertraline (ZOLOFT) 50 MG tablet 05/17/2017 Active Active Problems Problem Noted Date Diagnosed Date Labral tear of long head of right biceps tendon 06/27/2017 Calcific tendonitis of right shoulder region 05/2017 Left knee pain 05/25/2017 Family History Medical History Relation Comments No Known Problems Brother No Known Problems Father No Known Problems Maternal Aunt No Known Problems Maternal Grandfather No Known Problems Maternal Grandmother No Known Problems Maternal Uncle No Known Problems Mother No Known Problems Paternal Aunt No Known Problems Paternal Grandfather No Known Problems Paternal Grandmother No Known Problems Paternal Uncle No Known Problems Sister Cancer Unspecified Diabetes Unspecified Infl. arthritis Unspecified Clotting disorder Neg Hx Collagen disease Neg Hx Depression Neg Hx Dislocations Neg Hx Gout Neg Hx Osteoporosis Neg Hx Scoliosis Neg Hx Relation Status Comments Brother Father Maternal Aunt Maternal Grandfather Maternal Grandmother Maternal Uncle Mother Paternal Aunt Paternal Grandfather Paternal Grandmother Paternal Uncle Sister Unspecified Social History Tobacco Use Types Packs/Day Years Used Date Smoking Tobacco: Never Smokeless Tobacco: Never Alcohol Use Standard Drinks/Week Comments No 0 (1 standard drink = 0.6 oz pur e alcohol) Education Answer Date Recorded Are you interested in more education? Not on sheryl e 07/22/2022 Are you concerned about learning? Not on file 07/22/2022 No 07/22/2022 No 07/22/2022 Digital Access Answer Date Recorded No 08/20/2022 No 08/20/2022 No 08/20/2022 Reliable internet access at home? Not on file 08/20/2022 Device with a working camera? Not on file Sex and Gender Information Value Date Recorded Sex Assigned at Not on file Legal Sex Male 12:03 PM EST Gender Identity Not on file Sexual Orientation Not on file Last Filed Vital Signs Vital Sign Reading Time Taken Comments Blood Pressure 124/74 05/30/2017 10:13 AM EST Pulse 68 05/30/2017 10:13 AM EST Temperature - - Respiratory Rate - - Oxygen Saturation - - Inhaled Oxygen Concentration - - Weight 63.5 kg (139 lb 15.9 oz) 04/25/2018 1:32 PM EST Height 165.1 cm (5' 5 ) 04/25/2018 1:32 PM EST Body Mass Index 23.3 04/25/2018 1:32 PM EST Plan of Treatment Health Maintenance Due Date Last Done Comments Adult Td,Tdap Booster 1968 LIPID PANEL 1968 DEPRESSION SCREENING 1980 HEPATITIS C SCREENING 1986 HIV ONE-TIME SCREENING (18-6 5 YEARS) 1986 COLOGUARD 2013 COLONOSCOPY 2013 COLORECTAL CANCER SCREENING 2013 FIT TEST 2013 FOBT 2013 SIGMOIDOSCOPY 2013 VIRTUAL COLONOSCOPY 2013 PNEUMOCOCCAL VACCINES (50+ y ears) (1 of 1 - PCV) 2018 ZOSTER VACCINES (1 of 2) 2018 INFLUENZA VACCINE (#1) 2024 COVID-19 VACCINE (2 - 2024-2 6 season) 2024 05/19/2020 SMOKING STATUS SCREENING (On ce After 26 Yrs) Completed 04/25/2018 HEPATITIS A VACCINES Aged Out No long er eligible based on patient's age to complete this topic HIB VACCINES Aged Out No longer eligi ble based on patient's age to complete this topic MENINGOCOCCAL VACCINES (ACWY) Aged Out No longer eligible based on patient's age to complete this topic MENINGOCOCCAL VACCINES (B) Aged Out N o longer eligible based on patient's age to complete this topic Medical Devices Not on file [place] [address] [place] [address] HMO POS [place] [address] [place] [address] HMO POS [facility] HMO POS [facility] HMO POS [facility] [place] [address] [place] [address] [place] [place] [address] [place] [address] [place] [place] [address] [place] [address] HMO POS Care Teams Training Coordinator Relationship Specialty Start Date End Date Kevin Anderson DO [address] [place] [address] PCP - General Internal Medicine 05/03/17 Additional Source Comments The information contained in this document represents components of the legal health record. It is not the complete legal health record.[facility]
== END 2024-12-09 18:19 | disposition home or self-care (01) ==
LOC: HO.HMCH 15:56
DX: Z00.00 Encounter for general adult medical examination without abnormal findings (principal); M25.511 Pain in right shoulder; M25.512 Pain in left shoulder; H91.93 Unspecified hearing loss, bilateral; E78.00 Pure hypercholesterolemia, unspecified; M75.81 Other shoulder lesions, right shoulder

== ENCOUNTER → 2024-12-09 15:55 | Outpatient (BNVA) | payer BC, SELFPAY | DX: Z00.00 Encounter for general adult medical examination without abnormal findings (principal); M25.511 Pain in right shoulder; M25.512 Pain in left shoulder; H91.93 Unspecified hearing loss, bilateral; E78.00 Pure hypercholesterolemia, unspecified; M75.81 Other shoulder lesions, right shoulder | CPT/HCPCS: 96127 ==